=== PATIENT | male | born 1985 | race Two or more races ===

== ENCOUNTER 2020-10-18 07:41 | Inpatient (IN) | payer OTHER ==
[~2020-10-18] VITALS: Ht 175.3 cm; Wt 90.7 kg
[2020-10-18] MEDS ORDERED: ceFAZolin 1GM/50ML 50 ML IV ONE (08:39)
[2020-10-18] MEDS ORDERED: fentaNYL CITRATE 100 MCG/2 ML VL ONE (11:41)
[2020-10-18] MEDS ORDERED: MIDAZOLAM HCL 1MG/1ML-2 ML VIAL ONE (11:42)
[2020-10-18] MEDS ORDERED: ONDANSETRON HCL 4 MG/2 ML VIAL ONE (11:44)
[2020-10-18] MEDS ORDERED: PROPOFOL 10 MG/ML 20 ML IV ONE (11:44)
[2020-10-18] MEDS ORDERED: LIDOCAINE 2% (LOCAL ANESTH.) PF 5ml SDV ONE (11:44)
[2020-10-18] MEDS ORDERED: ROCURONIUM 10MG/ML 10ML VIAL IV ONE (11:49)
[2020-10-18] MEDS ORDERED: BUPIVACAINE 0.25% INJ 50ML VIAL ONE (11:55)
[2020-10-18] MEDS ORDERED: GLYCOPYRROLATE 0.2 MG/ML 1ML VIAL ONE (12:50)
[2020-10-18] MEDS ORDERED: NEOSTIGMINE 1 MG/ML INJ (10mg/10ML VIAL) ONE (12:50)
[2020-10-18] MEDS ORDERED: ONDANSETRON HCL 4 MG/2 ML VIAL IV PRN ×2 (13:00)
[2020-10-18] MEDS ORDERED: PANTOPRAZOLE 40 MG/10 ML VIAL INJ IV ONE (13:00)
[2020-10-18] MEDS: HYDROmorphone HCL 2 MG/ML VL IV PRN ×5 (13:17→22:07)
[2020-10-18] MEDS: ceFAZolin 1GM/50ML 50 ML IV SCH ×2 (14:17→22:04)
[2020-10-18 17:00] VITALS: BP 134/85
[2020-10-18] MEDS: LACTATED RINGER'S 1,000 ML IV SCH (20:58)
[2020-10-18] MEDS: HYDROcodone-ACET 5/325MG TAB PO PRN (20:59)
[2020-10-18] MEDS: DOCUSATE SOD 100 MG CAP PO SCH (21:00)
[2020-10-18 22:00] VITALS: BP 132/87
[2020-10-18] MEDS: hydrOXYzine 25 MG TAB or CAP PO PRN (23:53)
[2020-10-19] VITALS (7 sets, daily range): BP systolic 135–141; BP diastolic 85–109
[2020-10-19] MEDS: HYDROcodone-ACET 5/325MG TAB PO PRN (05:21)
[2020-10-19 06:08] LABS: Basophils # (auto) 0 10 ^3/uL (0-0.2); Basophils % (auto) 0.1 % (0.0-2.0); Eosinophils # (auto) 0 10 ^3/uL (0-0.8); Eosinophils % (auto) 0.1 % (0.0-7.0); Hematocrit 41.5 % (41.0-53.0); Hemoglobin 14.5 g/dL (13.5-17.5); Lymphocytes # (auto) 1.6 10 ^3/uL (0.4-5.4); Lymphocytes % (auto) 13.3 % (10.0-50.0); Mean Corpuscular Hemoglobin 31.8 pg (28.0-32.0); Mean Corpuscular Hgb Conc. 34.9 g/dL (32.0-36.0); Mean Corpuscular Volume 91.1 fL (80.0-100.0); Monocytes # (auto) 1.1 10 ^3/uL (0-1.3); Monocytes % (auto) 9.2 % (0.0-12.0); Neutrophils % (auto) 77.3 % (37.0-80.0); Platelet Count (auto) 221 10^3/uL (140-450); Red Blood Cells 4.56 10^6/uL (4.5-5.90); Red Cell Distribution Width 12.7 % (11.8-14.3); White Blood Cell 11.7 10^3/uL (4.4-10.8)
[2020-10-19 06:20] LABS: Potassium 3.8 mmol/L (3.5-5.1)
[2020-10-19 06:30] LABS: Albumin 3.4 g/dL (3.4-5.0); BUN/Creatinine Ratio 10.8; Bilirubin, Total 0.7 mg/dL (0.2-1.0); Calcium 7.9 mg/dL (8.5-10.1); Total Protein 6.7 g/dL (6.4-8.2)
[2020-10-19] MEDS: ceFAZolin 1GM/50ML 50 ML IV SCH ×2 (06:33→15:18)
[2020-10-19] MEDS: LACTATED RINGER'S 1,000 ML IV SCH ×3 (06:33→15:18)
[2020-10-19] MEDS: HYDROmorphone HCL 2 MG/ML VL IV PRN ×4 (06:48→20:37)
[2020-10-19] MEDS: hydrOXYzine 25 MG TAB or CAP PO PRN (09:19)
[2020-10-19] MEDS: PANTOPRAZOLE 40 MG/10 ML VIAL INJ IV SCH (09:20)
[2020-10-19] MEDS: DOCUSATE SOD 100 MG CAP PO SCH (09:20)
[2020-10-19] MEDS ORDERED: HYDRX10T PO (10:04)
[2020-10-19] MEDS ORDERED: DIVA125T12 PO (10:04)
[2020-10-20] MEDS: hydrOXYzine 25 MG TAB or CAP PO PRN ×2 (01:10→21:44)
[2020-10-20] MEDS: HYDROcodone-ACET 5/325MG TAB PO PRN ×3 (01:11→17:11)
[2020-10-20] MEDS: DOCUSATE SOD 100 MG CAP PO SCH ×3 (01:12→21:39)
[2020-10-20] MEDS: ceFAZolin 1GM/50ML 50 ML IV SCH ×4 (01:13→21:39)
[2020-10-20] MEDS: HYDROmorphone HCL 2 MG/ML VL IV PRN ×5 (01:16→22:31)
[2020-10-20] MEDS: LACTATED RINGER'S 1,000 ML IV SCH ×2 (01:20→14:48)
[2020-10-20 05:00] VITALS: BP 139/86
[2020-10-20 08:00] VITALS: BP 139/86
[2020-10-20 09:00] VITALS: BP 138/83
[2020-10-20] MEDS: PANTOPRAZOLE 40 MG/10 ML VIAL INJ IV SCH (09:29)
[2020-10-20 13:00] VITALS: BP 126/77
[2020-10-20] MEDS ORDERED: LACTULOSE 20Gm/30ML SOLN PO PRN (13:30)
[2020-10-20] MEDS ORDERED: LACTULOSE 20Gm/30ML SOLN PO ONE ×2 (13:30)
[2020-10-20] MEDS: metroNIDAZOLE 500 MG TAB PO SCH ×2 (14:49→21:40)
[2020-10-20 17:00] VITALS: BP 133/83
[2020-10-20] MEDS: LACTULOSE 20Gm/30ML SOLN PO PRN (21:44)
[2020-10-20 22:07] VITALS: BP 132/90
[2020-10-21] MEDS: HYDROcodone-ACET 5/325MG TAB PO PRN ×4 (00:41→18:36)
[2020-10-21] MEDS: HYDROmorphone HCL 2 MG/ML VL IV PRN ×5 (03:46→21:11)
[2020-10-21] MEDS: LACTATED RINGER'S 1,000 ML IV SCH ×2 (04:10→17:20)
[2020-10-21 05:16] VITALS: BP 128/85
[2020-10-21 05:23] LABS: Basophils # (auto) 0 10 ^3/uL (0-0.2); Basophils % (auto) 0.2 % (0.0-2.0); Eosinophils # (auto) 0.2 10 ^3/uL (0-0.8); Eosinophils % (auto) 2.6 % (0.0-7.0); Hematocrit 40.4 % (41.0-53.0); Hemoglobin 13.9 g/dL (13.5-17.5); Lymphocytes # (auto) 2.4 10 ^3/uL (0.4-5.4); Lymphocytes % (auto) 41.1 % (10.0-50.0); Mean Corpuscular Hemoglobin 31.6 pg (28.0-32.0); Mean Corpuscular Hgb Conc. 34.5 g/dL (32.0-36.0); Mean Corpuscular Volume 91.6 fL (80.0-100.0); Monocytes # (auto) 0.7 10 ^3/uL (0-1.3); Monocytes % (auto) 12.5 % (0.0-12.0); Neutrophils # (auto) 2.6 10 ^3/uL (1.6-8.6); Neutrophils % (auto) 43.6 % (37.0-80.0); Nucleated Red Blood Cells % 0.1 %; Platelet Count (auto) 234 10^3/uL (140-450); Red Blood Cells 4.41 10^6/uL (4.5-5.90); Red Cell Distribution Width 12.9 % (11.8-14.3); White Blood Cell 5.9 10^3/uL (4.4-10.8)
[2020-10-21] MEDS: metroNIDAZOLE 500 MG TAB PO SCH ×3 (05:47→21:31)
[2020-10-21] MEDS: ceFAZolin 1GM/50ML 50 ML IV SCH ×3 (05:47→21:30)
[2020-10-21 05:54] LABS: Albumin 3.3 g/dL (3.4-5.0); Calcium 8.4 mg/dL (8.5-10.1); Potassium 3.6 mmol/L (3.5-5.1)
[2020-10-21 05:58] LABS: Bilirubin, Total 0.4 mg/dL (0.2-1.0); Total Protein 6.8 g/dL (6.4-8.2)
[2020-10-21 08:58] VITALS: BP 115/85
[2020-10-21] MEDS: PANTOPRAZOLE 40 MG/10 ML VIAL INJ IV SCH (09:54)
[2020-10-21] MEDS: DOCUSATE SOD 100 MG CAP PO SCH ×2 (09:54→21:30)
[2020-10-21 13:00] VITALS: BP 118/67
[2020-10-21] MEDS: LACTULOSE 20Gm/30ML SOLN PO PRN ×2 (14:27→21:31)
[2020-10-21 17:11] VITALS: BP 132/94
[2020-10-21] MEDS: hydrOXYzine 25 MG TAB or CAP PO PRN (21:31)
[2020-10-21 22:00] VITALS: BP 129/91
[2020-10-22] MEDS: HYDROcodone-ACET 5/325MG TAB PO PRN ×3 (00:35→14:20)
[2020-10-22] MEDS: HYDROmorphone HCL 2 MG/ML VL IV PRN ×3 (02:10→09:37)
[2020-10-22 05:00] VITALS: BP 118/85
[2020-10-22] MEDS: ceFAZolin 1GM/50ML 50 ML IV SCH ×2 (05:32→14:00)
[2020-10-22] MEDS: metroNIDAZOLE 500 MG TAB PO SCH ×2 (05:33→14:00)
[2020-10-22] MEDS: LACTATED RINGER'S 1,000 ML IV SCH (06:34)
[2020-10-22 07:51] LABS: Basophils # (auto) 0 10 ^3/uL (0-0.2); Basophils % (auto) 0.7 % (0.0-2.0); Eosinophils # (auto) 0.2 10 ^3/uL (0-0.8); Eosinophils % (auto) 3.4 % (0.0-7.0); Hematocrit 41.5 % (41.0-53.0); Hemoglobin 14.4 g/dL (13.5-17.5); Mean Corpuscular Hemoglobin 31.8 pg (28.0-32.0); Mean Corpuscular Hgb Conc. 34.6 g/dL (32.0-36.0); Mean Corpuscular Volume 91.7 fL (80.0-100.0); Monocytes # (auto) 0.7 10 ^3/uL (0-1.3); Monocytes % (auto) 11.6 % (0.0-12.0); Neutrophils # (auto) 2.9 10 ^3/uL (1.6-8.6); Neutrophils % (auto) 49.3 % (37.0-80.0); Nucleated Red Blood Cells % 0.1 %; Platelet Count (auto) 230 10^3/uL (140-450); Red Blood Cells 4.53 10^6/uL (4.5-5.90); Red Cell Distribution Width 12.8 % (11.8-14.3); White Blood Cell 5.8 10^3/uL (4.4-10.8)
[2020-10-22 08:15] LABS: BUN/Creatinine Ratio 14.9; Calcium 8.3 mg/dL (8.5-10.1); Potassium 3.8 mmol/L (3.5-5.1)
[2020-10-22 09:07] VITALS: BP 122/73
[2020-10-22] MEDS: PANTOPRAZOLE 40 MG/10 ML VIAL INJ IV SCH (09:36)
[2020-10-22] MEDS: DOCUSATE SOD 100 MG CAP PO SCH (09:37)
[2020-10-22] MEDS ORDERED: GLYCERIN ADULT RECTAL SUPP PR ONE (12:30)
[2020-10-22 13:00] VITALS: BP 131/91
[2020-10-22 14:59] VITALS: BP 131/91
== END 2020-10-22 15:30 | DRG 354 ==
LOC: SUR 07:41 → OVERFLOW 13:43 → WEST WING 15:40
PROVIDERS: ADMIT Internal Medicine; ATTEND Internal Medicine
PROC: 0WQF0ZZ Repair Abdominal Wall, Open Approach (ICD-10-PCS; principal; 2020-10-18 11:42)
DX: K42.9 Umbilical hernia without obstruction or gangrene (principal); E87.1 Hypo-osmolality and hyponatremia; K43.2 Incisional hernia without obstruction or gangrene; Z20.822 Contact with and (suspected) exposure to COVID-19; F31.9 Bipolar disorder, unspecified; E66.9 Obesity, unspecified; F41.9 Anxiety disorder, unspecified; K59.00 Constipation, unspecified; Z68.29 Body mass index [BMI] 29.0-29.9, adult
CPT/HCPCS: 36415; 80048; 80053; 85025; C9113; G0378; J0690; J2001; J2250; J2405; J2704; J3490